=== PATIENT | male | born 1945 | race Caucasian/White ===

== ENCOUNTER 2019-04-17 06:17 | Emergency (ER) | payer BC | END 2019-04-17 06:54 | LOC: EDH 06:17 | DX: Z02.83 Encounter for blood-alcohol and blood-drug test (principal); E78.00 Pure hypercholesterolemia, unspecified; I10 Essential (primary) hypertension; K21.9 Gastro-esophageal reflux disease without esophagitis; J45.909 Unspecified asthma, uncomplicated; M06.9 Rheumatoid arthritis, unspecified | CPT/HCPCS: 36415 ==

== ENCOUNTER 2023-12-30 06:05 | Day surgery (SDC) | payer BC, MEDICARE ==
[2023-12-25 13:00] VITALS: BP 119/69; PULSE 61; RESP 17
[2023-12-25 13:03] LABS: BASOPHILS # (AUTO) 0.04 K/uL (0.00-0.20); BASOPHILS % (AUTO) 0.4 % (0.0-5.0); EOSINOPHILS # (AUTO) 0.27 K/uL (0.00-0.70); EOSINOPHILS % (AUTO) 2.7 % (0.0-8.0); HEMATOCRIT 40.3 % (42-54); IMMATURE GRANULOCYTE ABSOLUTE 0.07 K/uL (0-1); LYMPHOCYTES # (AUTO) 0.9 K/uL (1.0-4.8); LYMPHOCYTES % (AUTO) 9.2 % (21.0-51.0); MEAN CORPUSCULAR HEMOGLOBIN 30.6 pg (27.0-33.0); MEAN CORPUSCULAR HGB CONC 32.8 g/dL (32.0-36.0); MEAN CORPUSCULAR VOLUME 93.5 fL (79-99); MONOCYTES # (AUTO) 0.9 K/uL (0.1-1.0); MONOCYTES % (AUTO) 9.3 % (3.0-13.0); NEUTROPHILS # (AUTO) 7.6 K/uL (1.8-7.7); NEUTROPHILS % (AUTO) 77.7 % (40.0-77.0); PLATELET COUNT (AUTO) 294 K/uL (130-400); RED BLOOD CELL COUNT(AUTO) 4.31 MIL/uL (4.50-6.20); RED CELL DISTRIBUTION WIDTH 12.9 % (11.0-15.5); WHITE BLOOD COUNT (AUTO) 9.8 K/uL (4.8-10.8)
[2023-12-25 13:17] LABS: INR <= 0.93 (0.85-1.15); PROTHROMBIN TIME 10.8 SEC (9.6-11.6)
[2023-12-25 13:19] LABS: PARTIAL THROMBOPLASTIN TIME 26.8 SEC (26.3-35.5)
[2023-12-25 13:21] LABS: CREATININE 1.3 mg/dL (0.5-1.3); POTASSIUM 4.5 mmol/L (3.5-5.1)
[2023-12-30] VITALS (17 sets, daily range): BP systolic 112–176; BP diastolic 56–85; PULSE 54–120; RESP 6–18
[~2023-12-30] VITALS: Ht 177.8 cm; Wt 77.0 kg
[2023-12-30] MEDS ORDERED: BUPIVACAINE/PF 0.5% 30ML VIAL ONE (06:52)
[2023-12-30] MEDS ORDERED: EPINEPHRINE PF 1MG (1:1,000) 1 MG/ML AMP ONE (06:53)
[2023-12-30] MEDS ORDERED: FAMOTIDINE 20MG VIAL IV ONE (06:56)
[2023-12-30] MEDS ORDERED: ACETAMINOPHEN 1,000 MG/100 ML VIAL IV ONE (06:56)
[2023-12-30] MEDS ORDERED: ROCURONIUM BROMIDE 10MG/1ML 5ML VL ONE (07:03)
[2023-12-30] MEDS ORDERED: LIDOCAINE PF 100MG/5ML (2%) SYRINGE 5ML ONE (07:03)
[2023-12-30] MEDS ORDERED: PROPOFOL 10 MG/ML 20ML VIAL IV ONE (07:03)
[2023-12-30] MEDS ORDERED: FENTANYL CITRATE PF 50 MCG/1 ML 2ML VIAL ONE (07:04)
[2023-12-30] MEDS ORDERED: ONDANSETRON 4MG INJ ONE (07:18)
[2023-12-30] MEDS ORDERED: DEXAMETHASONE SOD PHOSPHATE 10MG/ML 1ML VIAL ONE (07:18)
[2023-12-30] MEDS: CEFAZOLIN SODIUM 2 GM VIAL ONE (07:25)
[2023-12-30] MEDS ORDERED: EPHEDRINE SULFATE 50 MG/ML AMPULE ONE (07:33)
[2023-12-30] MEDS ORDERED: NEOSTIGMINE METHYLSULFATE 1MG/ML IV ONE (07:56)
[2023-12-30] MEDS ORDERED: GLYCOPYRROLATE 0.2 MG/ML 5 ML VIAL ONE (07:56)
[2023-12-30] MEDS ORDERED: DOCU-116 PO (08:13)
[2023-12-30] MEDS ORDERED: GABA-529 PO (08:13)
[2023-12-30] MEDS ORDERED: METH-662 PO (08:13)
[2023-12-30] MEDS ORDERED: TRAM50TA4 PO (08:13)
[2023-12-30] MEDS ORDERED: SUGAMMADEX SODIUM 200 MG/2 ML VIAL IV ONE (08:27)
[2023-12-30] MEDS ORDERED: MULT-1203 PO (08:38)
[2023-12-30] MEDS ORDERED: MONT-47 PO (08:38)
[2023-12-30] MEDS ORDERED: DICL100T85 PO (08:38)
[2023-12-30] MEDS ORDERED: SIMV80TA91 PO (08:38)
[2023-12-30] MEDS: MEPERIDINE-PF 25 MG/ML SYG ONE (08:38)
[2023-12-30] MEDS ORDERED: VALA500T PO (08:38)
[2023-12-30] MEDS ORDERED: QVAR (08:38)
[2023-12-30] MEDS ORDERED: SILD100T PO (08:38)
[2023-12-30] MEDS ORDERED: TOFA11TA PO (08:38)
[2023-12-30] MEDS ORDERED: LEVAHFA IH (08:38)
[2023-12-30] MEDS ORDERED: LOSA50TA64 PO (08:38)
[2023-12-30] MEDS ORDERED: DEXL60CA3 PO (08:38)
[2023-12-30] MEDS ORDERED: TEST30SO3 TD (08:38)
[2023-12-30] MEDS ORDERED: OMEG12002 PO (08:38)
[2023-12-30] MEDS: LACTATED RINGERS 1000ML 1,000 ML IV ONE (08:47)
== END 2023-12-30 10:02 | disposition home or self-care (01) ==
LOC: DAH 06:05
PROVIDERS: ATTEND Surgery
DX: K40.90 Unilateral inguinal hernia, without obstruction or gangrene, not specified as recurrent (principal); J45.909 Unspecified asthma, uncomplicated; E78.5 Hyperlipidemia, unspecified; M19.90 Unspecified osteoarthritis, unspecified site; Z98.890 Other specified postprocedural states; Z90.89 Acquired absence of other organs; Z79.01 Long term (current) use of anticoagulants; Z79.899 Other long term (current) drug therapy
CPT/HCPCS: 80048; 85025; 85610; 85730; 36415; 93005; 49650; A4663 ×2; J7030; A4344; J7120; J3490 ×4; J3010; J1100; J2001; J0171; J2704; J2405; J2710; J0665; J2175; J0690; C9250; A4649 ×2; A4930 ×2; C1781; A4215; A4223; A4213; A4358; A4222; A4221; A4600